=== PATIENT | female | born 1940 | race Caucasian/White ===

== ENCOUNTER 2018-01-01 18:53 | Inpatient (IN) | payer MEDICARE, BC ==
[~2018-01-01] VITALS: Ht 162.6 cm; Wt 44.0 kg
[2018-01-01] MEDS ORDERED: SYNTHROID175 MCG (19:07)
[2018-01-01] MEDS ORDERED: RENVELA800 MG PO (19:07)
[2018-01-01] MEDS ORDERED: NORVASC5 MG PO (19:08)
[2018-01-01] MEDS ORDERED: STOOL SOFTENER100 MG (19:08)
[2018-01-01 19:09] VITALS: BP 150/72
[2018-01-01 22:02] LABS: ABSOLUTE BASOPHILS 0.1 thou/uL (0.0-0.2); ABSOLUTE EOSINOPHILS 0.2 thou/uL (0.0-0.7); ABSOLUTE LYMPHOCYTES 2.2 thou/uL (0.8-5.3); ABSOLUTE MONOCYTES 0.5 thou/uL (0.0-1.2); ABSOLUTE NEUTROPHILS 3.6 thou/uL (1.6-8.1); EOSINOPHILS 3.3 %; HEMATOCRIT 32.8 % (37.0-47.0); HEMOGLOBIN 11.1 gm/dL (12.0-15.0); LYMPHOCYTES 33.7 %; MCH 32.2 pg (26.0-34.0); MCHC 33.7 g/dL (28.0-37.0); MCV 95.7 fL (80.0-100.0); MPV 7.9 fl. (7.2-11.1); NUCLEATED RBCS 0 /100WBC; PLATELET COUNT* 197 thou/uL (150-400); RBC 3.43 mil/uL (4.20-5.00); RDW-CV 14.6 % (10.5-14.5); WBC 6.6 thou/uL (4.0-11.0)
[2018-01-01 22:13] VITALS: BP 108/45
[2018-01-01 22:17] LABS: ALBUMIN 3.4 g/dL (3.4-5.0); CALCIUM 9.1 mg/dL (8.5-10.1); CREATININE 2.7 mg/dL (0.6-1.3); POTASSIUM 4.8 mmol/L (3.5-5.1); TOTAL BILIRUBIN 0.4 mg/dL (<0.1-1.0); TOTAL PROTEIN 7.9 g/dL (6.4-8.2)
[2018-01-01 23:00] VITALS: BP 135/57
[2018-01-02] VITALS (9 sets, daily range): BP systolic 58–142; BP diastolic 28–55
[2018-01-02 01:58] LABS: BE 0 mmol/L (-2 to +3); PO2 65.5 mmHg (75.0-100.0)
[2018-01-02 02:00] LABS: PCO2 158.5 mmHg (35.0-45.0)
[2018-01-02 02:01] LABS: pH 6.962 (7.340-7.450)
[2018-01-02 02:17] LABS: CALCIUM 9.2 mg/dL (8.5-10.1); CREATININE 3.1 mg/dL (0.6-1.3)
[2018-01-02 02:24] LABS: POTASSIUM 3.7 mmol/L (3.5-5.1)
--- NOTE | 2018-01-02 04:00 | NUR ---
PT HAD SOA AND WAS UNRESPONSIVE. SEE NOTES FROM PRIOR NURSE. PT BROUGHT TO THR ICU AND WAS ON BI PAP WITH ORDRED SETTINGS. ASSESSMENT AND VS OBTAINED, SEE CHARTING.
--- NOTE | 2018-01-02 04:23 | NUR ---
PT ARRIVED ON UNIT AT 2220 DROWSY BUT AROUSABLE VSS ASSISTED TO BED ORIENTED TO SURROUNDINGS ASSESSMENT DOCUMENTED. PT L ARM SPLINTED AND IN A SLING ELEVATED ON PILLOW CMS CHECKS GOOD. PT SLEEPING ON ROUNDS. PTS DAUGHTER CAME OUT TO ASK STAFF TO CHECK ON HER MOTHER BECAUSE SHE WASNT RESPONDING TO HER. PT NOT RESPONSIVE 131/36 82 12 89% ON 2L INCREASED O2 TO 3L NC O2 92% CALLED [facility]PONSE AT [address] HENLEY. PTS RR 6 BP 131/36 HR 112 O2 SAT [address] ON 50% VENTI MASK THEN CHANGED TO NRB VS 144/44 83 14 O2 SAT 93%. DR HENLEY ORDERED STAT ABG BMP AND HEAD CT NARCAN 0.4MG X2 ABG RESULTS PH 6.96 PCO2 159 PO2 66 BICARB 35 SAT 83 % DONE WHILE ON [address] HENLEY NOTIFIED ORDERED BIPAP AND TRANSFER TO THE ICU STAFF BAGGED PT FROM 0215 TO 0300 WHILE AWAITING BIPAP. PT TRANSFERED TO ICU AT 0450.
--- NOTE | 2018-01-02 05:56 | NUR ---
PT STILL UNRESPONSIVE AND IS GUPPY BREATHING. PT REMAINS ON BI PAP WITH ORDERED SETTINGS.
--- NOTE | 2018-01-02 06:45 | NUR ---
DAUGHTER WANTING TO WITHDRAW CARE. CALLED DR HENLEY TO DISCUSS THE SITUATION AND SHE WANTS A STAT ABG AND PULMONARY CONSULT. DR HENLEY WANTS TO EXPRESS TO THE DAUGHTER THAT NO DR'S EXCEPT ED DR HAS SEEN HER AND WE NEED TO AT LEAST LET THE DR'S ROUND AND GET THEIR OPIPION.
--- NOTE | 2018-01-02 06:55 | NUR ---
TALKED TO DR HENDRICKSON RE PT'S EVENT AND PT'S CONDITION OF RIGHT NOW. HE WANTS DR HURLEY SEE THE PT AND DECIDE WHAT PATH TO TAKE FROM THERE.
--- NOTE | 2018-01-02 07:20 | NUR ---
DR FOSTER HERE TO ROUND ON PT. DR AMES AND I EXPLAINED THE COUSE OF THE PT AND THE DAUGHTERS WISHES. NATALY DID AGREE TO LET ALL DR'S ROUND.
[2018-01-02 07:37] LABS: HCO3 35.7 mmol/L (22.0-26.0); PO2 82.7 mmHg (75.0-100.0)
[2018-01-02 07:39] LABS: PCO2 > 163.4 mmHg (35.0-45.0); pH 6.877 (7.340-7.450)
--- NOTE | 2018-01-02 12:46 | NUR ---
I ASSUMED CARE OF THE PATIENT AT 0700. SHE IS UNRESPONSIVE AND DOES NOT RESPOND TO PAINFUL STIMULI. HER DAUGHTER AND TWO GRANDKIDS ARE AT THE BEDSIDE. SHE WAS ON A BIPAP WHEN I ARRIVED AND ABG'S WERE DRAWN. WHEN ABG'S CAME BACK AND HAD NOT IMPROVED, THE DAUGHTER DECIDED TO REMOVE THE BIPAP AND WITHDRAWL CARE. COMFORT CARE WAS ACTIVATED. ALL PULSES ARE VERY WEAK. I WAS AT THE BEDSIDE CONTINUOUSLY. ORAL CARE WAS GIVEN AND PATIENT WAS REPOSITIONED. BED IS IN THE LOW LOCKED POSITION AND CALL LIGHT IS IN REACH. PATIENT NEEDS ARE MET AND PATIENT LOOKS COMFORTABLE. COMFORT CARE MEDS WERE GIVEN. BEDSIDE MONITOR WAS TURNED OFF. PATIENT WAS TAKEN OFF OF BIPAP AT 0820. HER VITAL SIGNS SLOWLY DECLINED. PATIENT BECAME ASYSTOLE AT 1000 AM WITH FAMILY AT THE BEDSIDE. A SECOND NURSE CONFIRMED . DAUGHTER WAS MAKING HOME ARRANGEMENTS AT THE BEDSIDE, FATHER JOSE GUADALUPE CAME TO PRAY WITH THE FAMLY. DAUGHTERS REQUESTED TO GIVE THE PATIENT HER FINAL BATH. I GAVE THEM SUPPLIES AND CONTACTED [facility] AND THE HOME THAT IS TRANSPORTING. FINAL RESTING PLACE WILL BE IN [place], [place] AND [employer] WILL HANDLE THE ARRANGEMENTS. [facility] WILL TRANSPORT AND HOLD THE PATIENT AND THE TWO COMPANIES WILL WORK TOGETHER. PERSONAL BELONGINGS WERE SENT WITH THE DAUGHTER BETTY, INCLUDING DENTURES. [facility] CONTACTED AND PATIENT DOES NOT QUALIFY FOR DONATION. WILL CONTINUE TO MONITOR UNTIL THE HOME ARRIVES.
== END 2018-01-02 10:00 | DRG 542 ==
LOC: EDSEX 18:53 → M.ERS 18:53 → M.TBA-ER 21:22 → M.ERS 21:22 → M.ORTHSURG 22:22 → M.TBA-ER 22:22 → M.ICU 01-02 03:22 → M.ERS 01-02 03:22 → M.ORTHSURG 01-02 03:22 → M.ICU 01-02 04:44
PROVIDERS: Emergency Medicine; ADMIT Internal Medicine
PROC: 2W39X1Z Immobilization of Left Upper Extremity using Splint (ICD-10-PCS; principal; 2018-01-02)
PROC: 5A09357 Assistance with Respiratory Ventilation, Less than 24 Consecutive Hours, Continuous Positive Airway Pressure (ICD-10-PCS; principal; 2018-01-02)
DX: M80.822A Other osteoporosis with current pathological fracture, left humerus, initial encounter for fracture (principal); J96.01 Acute respiratory failure with hypoxia; G92 Toxic encephalopathy; N18.6 End stage renal disease; J96.02 Acute respiratory failure with hypercapnia; E87.2 Acidosis; I46.9 Cardiac arrest, cause unspecified; G30.9 Alzheimer's disease, unspecified; F02.80 Dementia in other diseases classified elsewhere, unspecified severity, without behavioral disturbance, psychotic disturbance, mood disturbance, and anxiety; W18.39XA Other fall on same level, initial encounter; Y93.01 Activity, walking, marching and hiking; R29.6 Repeated falls; Z66 Do not resuscitate; Z51.5 Encounter for palliative care; Z99.2 Dependence on renal dialysis; Z88.0 Allergy status to penicillin; Y92.091 Bathroom in other non-institutional residence as the place of occurrence of the external cause; Y99.8 Other external cause status; Z91.81 History of falling